=== PATIENT | female | born 1965 | race Caucasian/White ===

== ENCOUNTER 2018-02-11 20:16 | Inpatient (IN) | payer OTHER ==
[~2018-02-11] VITALS: Ht 165.1 cm; Wt 72.6 kg
--- NOTE | 2018-02-11 20:29 | ED PSYCHIATRIC COMPLAINT ---
History of Present Illness General Chief Complaint: Psychiatric Related Complaint Stated Complaint: BIBA OVERDOSE, +SI Source: patient, EMS Exam Limitations: no limitations Vital Signs & Intake/Output Vital Signs & Intake/Output Vital Signs Date Time Temp Pulse Resp B/P B/P Pulse O2 O2 Flow FiO2 Mean Ox Delivery Rate 02/12 1038 98.2 84 20 111/57 99 Room Air 02/12 0842 98.0 78 18 106/78 98 Room Air 02/12 0600 98.2 80 18 118/77 99 Room Air 02/12 0423 98.3 76 18 115/58 99 Room Air 02/12 0349 65 20 101/55 100 Room Air 02/12 0313 98.6 81 18 101/60 99 Room Air 02/12 0145 97.5 62 18 101/56 99 Room Air 02/12 0040 70 18 96/53 100 Room Air 02/12 0029 74 18 83/50 99 Room Air 02/11 2305 97.6 73 18 101/59 100 Room Air 02/11 2218 76 16 115/71 97 Room Air Room Air 02/11 2159 83 16 96 Room Air Room Air 02/11 2047 97.8 90 20 113/68 96 Room Air ED Intake and Output 02/12 0000 02/11 1200 Intake Total Output Total Balance Patient 160 lb Weight Weight Estimated Measurement Method Triage Nurses Notes Reviewed? yes Onset: Gradual Duration: hour(s): Timing: recent history Severity: moderate Associated Symptoms: anxiety, suicidal ideation HPI: 52 yo woman brought in on a police PEER, after suicide attempt. She shares that she received disturbing texts from her boyfriend of 7 years. "He lied to me... I trusted him... He seemed so genuine... I am such a fool." She then took her xanax. "I took four pills... and then 2 more... and then some more... maybe 12 total... I had vodka in orange juice." 911 called after she spoke to a friend. Per the medics, "She said she wanted to go to sleep and not wake up." She denies other drugs. She is otherwise well. (Gayle WALSH,Mata Solis) Allergies Coded Allergies: Penicillins (ANAPHYLAXIS PER PT 02/12/18) Sulfa (Sulfonamide Antibiotics) (ANAPHYLAXIS PER PT 02/12/18) (Buck WALSH,Enrique Arce) Past History Travel History Traveled to [place] past 21 day No Medical History Any Pertinent Medical History? see below for history Psychiatric: anxiety Surgical History Surgical History: none Family History Hx Contributory? No (Gayle WALSH,Mata Solis) Review of Systems Review of Systems Constitutional: Reports: no symptoms. EENTM: Reports: no symptoms. Respiratory: Reports: no symptoms. Cardiovascular: Reports: no symptoms. GI: Reports: no symptoms. Genitourinary: Reports: no symptoms. Musculoskeletal: Reports: no symptoms. Skin: Reports: no symptoms. Neurological/Psychological: Reports: no symptoms. Hematologic/Endocrine: Reports: no symptoms. Immunologic/Allergic: Reports: no symptoms. All Other Systems: Reviewed and Negative (Gayle WALSH,Mata Solis) Physical Exam Physical Exam General Appearance: well developed/nourished, mild distress Head: atraumatic Eyes: Bilateral: normal appearance. Ears, Nose, Throat: normal pharynx, normal ENT inspection, hearing grossly normal Neck: normal inspection, supple Respiratory: normal breath sounds Cardiovascular: regular rate/rhythm Gastrointestinal: soft, non-tender Extremities: normal range of motion Neurological/Psychiatric: agitated, anxious Appearance/Memory/Insight: disheveled, impaired insight Behavoir/Eye Contact/Speech: cooperative Thoughts/Hallucinations: no apparent hallucination Skin: intact, normal color, warm/dry SAD PERSONS SAD PERSONS Response Value Age <19 or >45 years? yes 1 Depression/Hopelessness? yes 2 Excessive Ethanol/Drug Use? yes 1 Rational Thinking Loss? yes 2 Single//? yes 1 Organized/Serious Attempt yes 2 Social Support? has no support 1 Total 10 SAD PERSONS Done? yes (Gayle WALSH,Mata Solis) Progress Differential Diagnosis: DEPRESSION VS OTHER. Plan of Care: Orders Procedure Date/time Status Regular Diet 02/12 B Active Patient Safety Monitor 02/12 1131 Active Restraint- Behavioral (Order) 02/12 1131 Active Restraint- Discontinue 02/12 0850 Active URINE DRUG SCREEN FOR ER ONLY 02/12 0849 Complete Restraint- Behavioral (Order) 02/12 0752 Active Restraint- Behavioral (Order) 02/12 0649 Complete Add-on Test (ER Only) 02/12 0544 Active EKG 02/12 0544 Active ACETOMINOPHEN 09/02 2054 Complete SALICYLATE 02/11 2054 Complete Continuous Observation Monitor 02/11 2033 Active ETHANOL 02/11 2033 Complete COMPREHENSIVE METABOLIC PANEL 02/11 2033 Complete CBC WITHOUT DIFFERENTIAL 02/11 2033 Complete ED CRISIS PSYCH CONSULT 02/11 2033 Active Current Medications Sig/Charly Start time Last Medication Dose Stop Time Status Admin Benztropine Mesylate 1 MG ONCE ONE 02/12 113 UNVr (Cogentin) 02/12 113 Haloperidol 5 MG ONCE ONE 02/12 113 UNVr (Haldol) 02/12 113 Laboratory Tests 02/12/18 0850: Urine Opiates Screen < 100, Methadone Screen < 40, Barbiturate Screen < 60, Ur Phencyclidine Scrn < 6.00, Amphetamines Screen < 100, U Benzodiazepines Scrn > 800 H, Urine Cocaine Screen < 50, Urine Cannabis Screen < 5.00 02/11/182053: Anion Gap 9, Estimated GFR > 60, BUN/Creatinine Ratio 15.0, Glucose 80, Calcium 9.6, Total Bilirubin 0.3, AST 31, ALT 33, Alkaline Phosphatase 102, Total Protein 7.2, Albumin 4.2, Globulin 3.0, Albumin/Globulin Ratio 1.4, CBC w Diff NO MAN DIFF REQ, RBC 4.56, MCV 70.6 L, MCH 22.2 L, MCHC 31.5 L, RDW 18.9 H, MPV 9.7, Gran % 66.4, Lymphocytes % 25.7, Monocytes % 6.3, Eosinophils % 1.1, Basophils % 0.5, Absolute Granulocytes 6.0, Absolute Lymphocytes 2.3, Absolute Monocytes 0.6, Absolute Eosinophils 0.1, Absolute Basophils 0, Salicylates < 1.0 , Acetaminophen < 10.0 L, Serum Alcohol < 10.0 02/11/182032: Methadone Screen Cancelled, Barbiturate Screen Cancelled, Ur Phencyclidine Scrn Cancelled, Amphetamines Screen Cancelled, U Benzodiazepines Scrn Cancelled, Urine Cocaine Screen Cancelled, Urine Cannabis Screen Cancelled Initial ED EKG: normal axis, normal intervals, normal p-waves, normal QRS complex, normal sinus rhythm (Gayle WALSH,Mata Solis) Comments: Patient has been seen and evaluated by the crisis counselor and a psychiatrist. Patient is due to be admitted to [facility]. Patient attempted to walk out twice stating that her previous mistake was that she called somebody and she just wants to go home to "finish the job." Patient is requiring restraints again. (Buck WALSH,Enrique Arce) Departure Departure Disposition: STILL A PATIENT Condition: Stable Clinical Impression Primary Impression: Depression Secondary Impressions: Benzodiazepine overdose Departure Forms: Customer Survey General Discharge Information Comments pt to be signed out to dr. gordon 02/12/18, 7am. (Gayle WALSH,Mata Solis) Psych Admission Note Psychiatric Admission: I have seen and evaluated YOLY KINCAID. I have also reviewed all the pertinent lab results and diagnostic results. YOLY KINCAID will be admitted to our inpatient Psychiatric unit for treatment and care. (Buck WALSH,Enrique Arce)
[2018-02-11 21:04] LABS: ABSOLUTE BASOPHIL COUNT 0 /CUMM (0.0-0.2); ABSOLUTE EOSINOPHIL COUNT 0.1 /CUMM (0.0-0.7); ABSOLUTE LYMPH COUNT 2.3 /CUMM (1.2-3.4); ABSOLUTE MONOCYTE COUNT 0.6 /CUMM (0.10-0.60); BASOPHIL % 0.5 % (0.0-2.0); EOSINOPHIL % 1.1 % (0-5); GRANULOCYTE % 66.4 % (42.2-75.2); HEMATOCRIT 32.2 % (37-47); MEAN CORPUSCULAR HGB 22.2 PG (27.0-31.0); MEAN CORPUSCULAR HGB CONC 31.5 G/DL (33.0-37.0); MEAN CORPUSCULAR VOLUME 70.6 FL (81.0-99.0); MEAN PLATELET VOLUME 9.7 FL (7.4-10.4); PLATELET COUNT 299 /CUMM (130-400); RBC DISTRIBUTION WIDTH 18.9 % (11.5-14.5); RED BLOOD CELL CT 4.56 /CUMM (4.20-5.40)
--- NOTE | 2018-02-12 09:29 | ED PSYCH CRISIS CONSULTATION ---
See Addendum Crisis Consult Basic Assessment Date of Consult: 02/12/18 Responsible Person/Accompanied By: SARAH and on a PEER Insurance Authorization: Insurance #1: Insurance name: LEONARDO COELLO Phone number: Policy number: [id number] Group number: Authorization number: ED Provider: Patient's ED Provider: Gayle WALSH,Mata Solis Primary Care Physician: Patient's PCP: Unknown PCP's Phone Number: Current Psychiatrist: None Chief Complaint: ETOH/Drug Related Complaint Patient's Quote: "Nothing." Present Illness: The patient is a 52 year old, female who presented to the ED on a PEER, after taking an intentional overdose of Xanax. The patient appears to have an altered mental status and was not sure what state she was in, or what facility she was in. She had a disorganized thought process and had loose associations. She was guarded and did not want to answer any questions. She denies that she attempted suicide and states " I didn't try to commit suicide, I just didn't want to be awake." She denies feeling depressed, anxious, or suicidal. She does admit to feeling helpless and hopeless. She states that she does not want to talk about her recent relationship issues and just wants to go home. She did not appear to have insight into the severity of her suicide attempt. She stated that her children would be better off without her and that she does not deserve or need any help. The patients brother, Dr. Devin Louie ([phone]), was present for collateral. He states that the patient has always been "an emotional," person. Devin states that the patient has been for 8 years and that she started a new romantic relationship at that time. Devin states that she has been in the relationship since, however the man is . Devin states that the patient believed that her boyfriend would leave his , however 2 days ago, this man stated he was never going to leave his . Devin states that this is the first time that the patient has ever tried to kill herself, however has made passive suicidal statements in the past. 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 Devin states that the patient has never hospitalized , however he does agree with a hospitalization at this time. SW received a call from the patients friend, Randal Briggs ([phone]), for collateral information. Randal states that he is a police magistrate and that they have been romantically involved for about the last 7 years. Randal states that they have been having arguments for the last couple of days. Randal states that after the argument, she called him and stated that she "took a dozen Xanax and was going to take 20 more with alcohol." Randal states that she told him she took the pills to kill herself and that she wrote goodbye notes to her parents and kids. Randal states that he is unsure of the status of their relationship and states " I just want her to get better." Patient's Address: [address] [place] [address] [address] [place] [address] Other Phone Number: Who Do You Live With? Patient/Self Family/Informants Interviewed: Brother- Devin Louie ([phone]) and Randal Briggs- Friend [phone] Allergies - Coded Allergies: Penicillins (ANAPHYLAXIS PER PT 02/12/18) Sulfa (Sulfonamide Antibiotics) (ANAPHYLAXIS PER PT 02/12/18) Laboratory Results: Laboratory Tests 02/12/18 0850: Urine Opiates Screen < 100, Methadone Screen < 40, Barbiturate Screen < 60, Ur Phencyclidine Scrn < 6.00, Amphetamines Screen < 100, U Benzodiazepines Scrn > 800 H, Urine Cocaine Screen < 50, Urine Cannabis Screen < 5.00 02/11/18 2054: Anion Gap 9, Estimated GFR > 60, BUN/Creatinine Ratio 15.0, Glucose 80, Calcium 9.6, Total Bilirubin 0.3, AST 31, ALT 33, Alkaline Phosphatase 102, Total Protein 7.2, Albumin 4.2, Globulin 3.0, Albumin/Globulin Ratio 1.4, CBC w Diff NO MAN DIFF REQ, RBC 4.56, MCV 70.6 L, MCH 22.2 L, MCHC 31.5 L, RDW 18.9 H, MPV 9.7, Gran % 66.4, Lymphocytes % 25.7, Monocytes % 6.3, Eosinophils % 1.1, Basophils % 0.5, Absolute Granulocytes 6.0, Absolute Lymphocytes 2.3, Absolute Monocytes 0.6, Absolute Eosinophils 0.1, Absolute Basophils 0, Salicylates < 1.0 , Acetaminophen < 10.0 L, Serum Alcohol < 10.0 02/11/182032: Methadone Screen Cancelled, Barbiturate Screen Cancelled, Ur Phencyclidine Scrn Cancelled, Amphetamines Screen Cancelled, U Benzodiazepines Scrn Cancelled, Urine Cocaine Screen Cancelled, Urine Cannabis Screen Cancelled Past History Past Medical History Psychiatric: anxiety Past Surgical History Surgical History: 1 Psychosocial History Strengths/Capabilities: The patient appears to have a supportive family. 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 Physical Limitations (Interventions): None noted Psychiatric Treatment History Psych Treatment Psychiatric Treatment No Inpatient Treatment No Outpatient Treatment Yes Location of Treatment Unclear- she says she has taken meds, however did not disclose prescriber Reason for Treatment Depression Dates of Treatment Unclear Response to Treatment The patient reports that she is very unhappy with the psychiatry profession. Diagnosis by History: Unknown Substance Use/Abuse History Drug Use/Abuse Substances Used/Abused No First Use N/A Last Used N/A How much used/taken N/A How often N/A For how long N/A Route of use N/A Substance Abuse Treatment Substance Abuse Treatment Past Substance Abuse TX No Inpatient Treatment No Outpatient Treatment No Location of Treatment N/A Reason for Treatment N/A Dates of Treatment N/A Response to Treatment N/A Comments: N/A Current Mental Status Mental Status Orientation: Confused Affect: Anxious, Depressed, Sad Speech: Slurred (At times) Neuro-vegetative: Appears to be desheveled Appearance Appearance- Dress/Hygiene: The patient appears to be disheveled and unkempt. Behaviors Thought Process: Disorganized, Flight of Ideas, Loose Association Thought Content: WNL Memory: Impaired Insight: Poor SI/HI Risk Assessment Past Suicidal Ideation/Attempts No Current Suicidal Ideation/Att Yes Past Homicidal Ideation/Att: No Current Homicidal Ideation/Attempts No Degree of Intent: The patient presented on a PEER after taking an intentional overdose of Xanax, in a suicide attepmt. Per her friend she called him and told him, that she took pills and was going to take more. Per her friend, she wrote goodbye notes to her children and parents. Danger To: Self Gravely Disabled: Poor Impulse Control, Poor Judgment Risk Factors: high anxiety/distress Lethality Ratin PTSD Checklist PTSD Done? pt unable to participate ED Management Sitter: Yes Restraints: No DSM5/PS Stressors/Medical Prob Diagnosis' (DSM 5, Stressors, Medical): F32.9 Unspecified Depressive Disorder Medical: Unremarkable Stressors: relationship issues. Current GAF: 25 Comments: N/A Departure Disposition Psych Medical Clearance Date: 02/12/18 Medically Cleared at: 1000 Time Started: 1030 Time Ended: 1130 Psychiatrist Consulted: Dr. Gilbert Date Disposition Established: 02/12/18 Time Disposition Established: 1129 Plan for Disposition - Modality: Admit to CPS Contact: N/A Telephone: N/A Rationale for Disposition: The patient presented to the ED on a PEER, after taking an intentional overdose of Xanax in a suicide attempt. The case was discussed with Dr. Gilbert and the patient will be observed in the ED, until her mental status clears somewhat and then will be admitted to CPS. Type of IP Admission: PEC Additional Instructions: N/A Referrals Unknown (PCP/Family)
--- NOTE | 2018-02-12 14:56 | IP CRISIS DIAG ASSESS PSYCH ---
Diagnostic Assessment Basic Assessment Insurance Authorization: Insurance #1: Insurance name: LEONARDO COELLO Phone number: Policy number: [id number] Group number: Authorization number: [employer] [facility] Reviewer: Myriam Courtney Authorized: 3 days, 02/12-02/14 Review due on:02/14/2018 Authorization #: [id number] Someone from the Case Management department will call to complete concurrent review. Primary Care Physician: Patient's PCP: Unknown PCP's Phone Number: Patient's Quote: "Nothing." Present Illness: The patient is a 52 year old, female who presented to the ED on a PEER, after taking an intentional overdose of Xanax. The patient appears to have an altered mental status and was not sure what state she was in, or what facility she was in. She had a disorganized thought process and had loose associations. She was guarded and did not want to answer any questions. She denies that she attempted suicide and states " I didn't try to commit suicide, I just didn't want to be awake." She denies feeling depressed, anxious, or suicidal. She does admit to feeling helpless and hopeless. She states that she does not want to talk about her recent relationship issues and just wants to go home. She did not appear to have insight into the severity of her suicide attempt. She stated that her children would be better off without her and that she does not deserve or need any help. The patients brother, Dr. Devin Louie ([phone]), was present for collateral. He states that the patient has always been "an emotional," person. Devin states that the patient has been for 8 years and that she started a new romantic relationship at that time. Devin states that she has been in the relationship since, however the man is . Devin states that the patient believed that her boyfriend would leave his , however 2 days ago, this man stated he was never going to leave his . Devin states that this is the first time that the patient has ever tried to kill herself, however has made passive suicidal statements in the past. 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 Devin states that the patient has never hospitalized , however he does agree with a hospitalization at this time. SW received a call from the patients friend, Randal Chester ([phone]), for collateral information. Randal states that he is a police department secretary and that they have been romantically involved for about the last 7 years. Randal states that they have been having arguments for the last couple of days. Randal states that after the argument, she called him and stated that she "took a dozen Xanax and was going to take 20 more with alcohol." Randal states that she told him she took the pills to kill herself and that she wrote goodbye notes to her parents and kids. Randal states that he is unsure of the status of their relationship and states " I just want her to get better." Patient's Address: [address] [place] [address] [address] [place] [address] Other Phone Number: Who Do You Live With? Patient/Self Feel Safe Where You Live? Yes Marital Status: Do You Have Children? Yes Ages? 2 adult children Primary Language? [place] Islander Family/Informants Interviewed: Brother- Devin Louie ([phone]) and Randal Briggs- Friend [phone] Allergies - Coded Allergies: Penicillins (ANAPHYLAXIS PER PT 02/12/18) Sulfa (Sulfonamide Antibiotics) (ANAPHYLAXIS PER PT 02/12/18) Current Medications - No Known Home Medications Consequences of Psych Med Use: N/A Comment: N/A Lab Results: Laboratory Tests 02/12/18 0850: Urine Opiates Screen < 100, Methadone Screen < 40, Barbiturate Screen < 60, Ur Phencyclidine Scrn < 6.00, Amphetamines Screen < 100, U Benzodiazepines Scrn > 800 H, Urine Cocaine Screen < 50, Urine Cannabis Screen < 5.00 02/11/184: Anion Gap 9, Estimated GFR > 60, BUN/Creatinine Ratio 15.0, Glucose 80, Calcium 9.6, Total Bilirubin 0.3, AST 31, ALT 33, Alkaline Phosphatase 102, Total Protein 7.2, Albumin 4.2, Globulin 3.0, Albumin/Globulin Ratio 1.4, CBC w Diff NO MAN DIFF REQ, RBC 4.56, MCV 70.6 L, MCH 22.2 L, MCHC 31.5 L, RDW 18.9 H, MPV 9.7, Gran % 66.4, Lymphocytes % 25.7, Monocytes % 6.3, Eosinophils % 1.1, Basophils % 0.5, Absolute Granulocytes 6.0, Absolute Lymphocytes 2.3, Absolute Monocytes 0.6, Absolute Eosinophils 0.1, Absolute Basophils 0, Salicylates < 1.0 , Acetaminophen < 10.0 L, Serum Alcohol < 10.0 02/11/182032: Methadone Screen Cancelled, Barbiturate Screen Cancelled, Ur Phencyclidine Scrn Cancelled, Amphetamines Screen Cancelled, U Benzodiazepines Scrn Cancelled, Urine Cocaine Screen Cancelled, Urine Cannabis Screen Cancelled Toxicology Screen Completed? Yes Results: positive (Benzodiazepines) Symptoms of Use: N/A Past History Abuse/Trauma History Trauma History/Current Trauma: Unknown, unable to assess Legal History Current Legal Status: none Pending Court Dates: Unknown Superintendent [place] Unknown Psychosocial History Strengths/Capabilities: The patient appears to have a supportive family. 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 Physical Limitations (Interventions): None noted Psychiatric Treatment History Psych Treatment Psychiatric Treatment No Inpatient Treatment No Outpatient Treatment Yes Location of Treatment Unclear- she says she has taken meds, however did not disclose prescriber Reason for Treatment Depression Dates of Treatment Unclear Response to Treatment The patient reports that she is very unhappy with the psychiatry profession. Diagnosis by History: Unknown Risk Factors: high anxiety/distress Substance Use/Abuse History Drug Use/Abuse minimum 12mo Hx Substances Used/Abused No First Use N/A Last Used N/A How much used/taken N/A How often N/A For how long N/A Route of use N/A Substance Abuse Treatment Substance Abuse Treatment Past Substance Abuse TX No Inpatient Treatment No Outpatient Treatment No Location of Treatment N/A Reason for Treatment N/A Dates of Treatment N/A Response to Treatment N/A Comments: N/A Sexual History Sexual Concerns: None noted Education History Highest Level of Education: [employer] Doctorate Preferred Learning Style: Unknown Current Mental Status Mental Status Orientation: Confused Affect: Anxious, Depressed, Sad Speech: Slurred (At times) Neuro-vegetative: Appears to be desheveled Appearance Appearance- Dress/Hygiene: The patient appears to be disheveled and unkempt. Behaviors Thought Process: Disorganized, Flight of Ideas, Loose Association Thought Content: WNL Memory: Impaired Insight: Poor SI/HI Risk Assessment - Minimum 6mo History- Past Suicidal Ideation/Attempts No Current Suicidal Ideation/Att Yes Past Homicidal Ideation/Att: No Current Homicidal Ideation/Attempts No Degree of Intent: The patient presented on a PEER after taking an intentional overdose of Xanax, in a suicide attepmt. Per her friend she called him and told him, that she took pills and was going to take more. Per her friend, she wrote goodbye notes to her children and parents. Danger To: Self Gravely Disabled: Poor Impulse Control, Poor Judgment Risk Factors: high anxiety/distress Lethality Ratin Needs/Init TX Plan/Goals: Admit to the inpatient unit for safety and symptom stability. Work with the provider on medication evaluation. Work with the treatmet team on transiton back to care in the community. Attend group, family and individual sessions. AUDIT-C Questionnaire: AUDIT-C Questionnaire: Response Value ETOH use in the past year Never 0 # drinks typical/day Doesn't Drink 0 6 or > drinks per occasion Never 0 Total 0 DSM5/PS Stressors/Medical Prob Diagnosis' (DSM 5, Stressors, Medical): F32.9 Unspecified Depressive Disorder Medical: Unremarkable Stressors: relationship issues. Current GAF: 25 Comments: N/A
--- NOTE | 2018-02-12 19:06 | ED PSYCHIATRIST/APRN CONSULT ---
Psychiatrist/ANVIL SEATING PRESS OPERATOR ED Consult Assessment and Plan: Case seen and discussed with drill sergeant. Jennifer Cordova is a 52 y/o WF. s/ intentional OD of 12-18 pills 1 mg Xanax. Intent was to kill self. Per collateral report wrote goodbye notes to parents and adult chidlren. Also sent a text to BF. Precipitating event was break up of relationship with BF. Pt presents as anxious, disheveled. Disinhibited with limited insight into seriousness of event. Claims she just wanted to " go to sleep" crying histerically. Disagrees with psy admit. pt came yesterday evening to ED and during the nigth had to be restrained for increased agitation. BP was low required 1000 cc. In the Am reamined highly agitated and attempted to elope. When this web content writer assesed seemed disinhibited. "You have to save children" not me " " I'm going to lose my job and then I'll kill myself" Reccomended 5 mg Haldol IM and 1 mg Cogentin.IM the afternoon progressed she seemed to calm down and remained in behavioral control Pt Will be admitted under PEC for risk to self.
[2018-02-12 20:50] VITALS: BP 133/83
--- NOTE | 2018-02-12 23:31 | History & Physical ---
General Information and HPI MD Statement: I have seen and personally examined YOLY KINCAID and documented this H&P. The patient is a 52 year old F who went into inpatient psychiatric unit for depression. Patient was seen around 10 PM tonight. Patient states that she had a Xanax given by her primary care doctor, for her anxiety disorder. She says she took the medication to go to sleep. And denied to me that she did not have any thoughts of killing herself by ingesting the medication. Patient is not cooperative or willing to provide much details at this point. I reviewed the psychiatric consultation note. As per the note patient probably ingested a 12-18 pulse of 1 mg of Xanax. Is also mentioned that patient wrote goodbye notes to family members. She arrived in the ER yesterday night was agitated, was needed restraints. She was trying to elope this morning as per the note. She also had a low blood pressure for which she was given IV fluids in the emergency room. Patient takes iron pills once daily at home. Denied taking any other medications except Xanax. History of Present Illness: The patient is a 52 year old F who went into inpatient psychiatric unit for depression. Patient was seen around 10 PM tonight. Patient states that she had a Xanax given by her primary care doctor, for her anxiety disorder. She says she took the medication to go to sleep. And denied to me that she did not have any thoughts of killing herself by ingesting the medication. Patient is not cooperative or willing to provide much details at this point. I reviewed the psychiatric consultation note. As per the note patient probably ingested a 12-18 pulse of 1 mg of Xanax. Is also mentioned that patient wrote goodbye notes to family members. She arrived in the ER yesterday night was agitated, was needed restraints. She was trying to elope this morning as per the note. She also had a low blood pressure for which she was given IV fluids in the emergency room. Patient takes iron pills once daily at home. Denied taking any other medications except Xanax. 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 Home Review of Systems Review of Systems Constitutional: Denies: no symptoms. EENTM: Denies: no symptoms. Cardiovascular: Denies: no symptoms. Respiratory: Denies: no symptoms. GI: Denies: no symptoms. Genitourinary: Denies: no symptoms. Skin: Denies: no symptoms. Exam & Diagnostic Data Last 24 Hrs of Vital Signs/I&O Vital Signs Date Time Temp Pulse Resp B/P B/P Pulse O2 O2 Flow FiO2 Mean Ox Delivery Rate 02/12 2050 98.4 84 133/83 02/12 1900 97.7 73 18 108/80 95 Room Air 02/12 1501 98.6 80 20 110/65 99 Room Air 02/12 1038 98.2 84 20 111/57 99 Room Air 02/12 0842 98.0 78 18 106/78 98 Room Air 02/12 0600 98.2 80 18 118/77 99 Room Air 02/12 0423 98.3 76 18 115/58 99 Room Air 02/12 0349 65 20 101/55 100 Room Air 02/12 0313 98.6 81 18 101/60 99 Room Air 02/12 0145 97.5 62 18 101/56 99 Room Air 02/12 0040 70 18 96/53 100 Room Air 02/12 0029 74 18 83/50 99 Room Air Intake & Output 02/12 1600 02/12 0800 02/12 0000 Intake Total Output Total Balance Patient 160 lb Weight Weight Estimated Measurement Method Physical Exam General Appearance Alert, Oriented X3, uncooperative for exam Skin No Rashes, No Breakdown HEENT PERRLA, EOMI Cardiovascular Regular Rate, No Murmurs Lungs Clear to Auscultation Abdomen obese, non tender Extremities No Edema, Normal Pulses Assessment/Plan Assessment: A/p; #Suicidal ideation And depression: Care as for the Psychiatric team. #No known medical issues. medicall stable. Dr.Ravinder Komal MD. Hospitalist. Pager: [phone], cell: [phone]. As Ranked By This Provider Problem List: 1. Depression 2. Benzodiazepine overdose Miscellaneous Miscellaneous Documentation Attending Case Discussed With: Cookie Gilbert MD Primary Care Physician: Unknown Patient sees these Specialists none Level of Patient Care: YODIT Corrales
[2018-02-13 07:53] VITALS: BP 157/90
--- NOTE | 2018-02-13 13:55 | CPS PROVIDER INIT ASMT PSYCH ---
Psychiatric Admission [employer]is [employer] Instructor's Note Reviewed: Yes Patient Seen and Examined: Yes Identifying Information: The patient is a 52 year old, female who presented to the ED on a PEER, Chief Complaint: The patient reports that she took the Xanax in order to fall asleep and not to suicide Reaction to Hospitalization: Patient was admitted on a physician emergency certificate History of Present Illness Onset of Illness: The patient's illness started with depression when she had her 21- year-old twins Circumstances Leading to Admission: The patient is a 52 year old, female who presented to the ED on a PEER, after taking an intentional overdose of Xanax. The patient appears to have an altered mental status and was not sure what state she was in, or what facility she was in. She had a disorganized thought process and had loose associations. She was guarded and did not want to answer any questions. She denies that she attempted suicide and states " I didn't try to commit suicide, I just didn't want to be awake." She denies feeling depressed, anxious, or suicidal. She does admit to feeling helpless and hopeless. She states that she does not want to talk about her recent relationship issues and just wants to go home. She did not appear to have insight into the severity of her suicide attempt. She stated that her children would be better off without her and that she does not deserve or need any help. The patients brother, Dr. Devin Louie ([phone]), was present for collateral. He states that the patient has always been "an emotional," person. Devin states that the patient has been for 8 years and that she started a new romantic relationship at that time. Devin states that she has been in the relationship since, however the man is . Devin states that the patient believed that her boyfriend would leave his , however 2 days ago, this man stated he was never going to leave his . Dvein states that this is the first time that the patient has ever tried to kill herself, however has made passive suicidal statements in the past. 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 Devin states that the patient has never hospitalized , however he does agree with a hospitalization at this time. DORON received a call from the patients friend, Randal Briggs ([phone]), for collateral information. Ranadl states that he is a plain clothes police officer and that they have been romantically involved for about the last 7 years. Randal states that they have been having arguments for the last couple of days. Randal states that after the argument, she called him and stated that she "took a dozen Xanax and was going to take 20 more with alcohol." Randal states that she told him she took the pills to kill herself and that she wrote goodbye notes to her parents and kids. Randal states that he is unsure of the status of their relationship and states " I just want her to get better." Problem(s) Justifying Need for Admission: Overdose on Xanax Past Psychiatric History Past Diagnosis(es)- if any: depression Past Precipitating Factors- if any: Patient reported that she is in part stressed out because of her daughter's own struggles with depression and hospitalizations - Include inpatient and outpatient treatment Treatment History: Patient has not had treatment in 21 years. She reported that she was getting a limited amount of Xanax from her [facility] History of Suicide Attempts or Gestures She denied previous history of suicide attempts. Although she denied that this was a suicide attempt there was an allegation that she wrote a note suggesting that she was feeling better off . Substance Abuse History: Denied alcohol or substance use Allergies: Coded Allergies: Penicillins (ANAPHYLAXIS PER PT 02/12/18) Sulfa (Sulfonamide Antibiotics) (ANAPHYLAXIS PER PT 02/12/18) Home Med List: As needed Xanax 0.5 mg she was receiving only 30 pills per month from her [facility] - Include any medical condition(s) that may - impact the patient's recovery/remission Past History Medical History Neurological: NONE EENT: NONE Cardiovascular: NONE Respiratory: NONE Gastrointestinal: NONE Hepatic: NONE Renal: NONE Musculoskeletal: NONE Psychiatric: anxiety, POST DEPRESSION Endocrine: NONE Blood Disorders: NONE Cancer(s): NONE 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 She reported that it was finally found to be hormonal in nature. Substance Use: Patient denied family history of alcoholism or substance use Suicides: She denied completed suicides in the family Social History Living Situation: She has stable housing with her 21-year-old twins Significant Relationships (family/friends): Her children and her brother Education: She has a low degree Vocation/Occupation: Works in [employer] Legal: Denied legal entanglements Healthly Behaviors Screening Tobacco Screening Tobacco Use from ED Docu: Never used - If tobacco counseling indicated - the following topics are required. - #1 Recognizing dangerous situations. - #2 Coping Skills. - #3 Basic information about quitting. Status of Tobacco Cessation Counseling: Not Applicable Cessation Med Status Not Applicable Alcohol Screening - ETOH screen POS if BAL >=80 or Audit-C>= M4/F3 Audit-C Score from Diag Assess: 0 Blood Alcohol Level: Laboratory Tests 02/11 2054 Toxicology Serum Alcohol (<10 MG/DL) < 10.0 Alcohol Use Screening Results: Neg per Audit C &/or BAL - If ETOH counseling indicated - the following topics are required. - #1 Express concern about the patient's - drinking at unhealthy levels, include informing - of national norms for moderate drinking: - men <= 14 drinks/week, max 4 drinks/occasion - women <= 7 drinks/week, max 3 drinks/occasion - #2 Providing feedback, including linking alcohol to - negative physical effects (liver injury, hypertension) - negative emotional effects (relationship problems and - depression) - negative occupational consequences (reduced work - performance) - #3 Advising the patient to abstain from alcohol or - to drink below national norms for moderate drinking - (as listed above). Status of ETOH Use Counseling: N/A B/C NO ETOH Use Metabolic Screening - Screen if on a Neuroleptic Medication - Metabolic screening should include: - Blood Pressure, BMI, Glucose or Hgb A1c, & a - Lipid profile from within the past 365 days. Metabolic Screening Not Applicable, patient not on a neuroleptic. Exam and Plan Mental Status Examination Ambulation Status: Steady gait Appearance: Unremarkable appearance Attitude towards examiner: Calm and cooperative Psychomotor activity: Normal psychomotor activity Behavior: No abnormal behaviors Quality of speech: Normal speech, not pressured Affect: Constricted affect Mood: She believes she is anxious and not depressed She however acknowledges that she has had past history of depression 21 years ago Suicidal Ideation: Denied thoughts of suicide Homicidal Ideation: Denied thoughts of violence or homicide Hallucinations: Denied hallucinations Paranoid/Delusional Material: Denied feeling paranoid, there were no delusions during the interview Difficulties with thought organization: She was coherent, no thought disorder Insight: She has partial insight Judgment: Questionable judgment Orientation: She was alert and oriented to time, place, and person. Cognition: She did not seem to have difficulties with information processing. Memory Function: There were no difficulties with her short-term memory Estimate of intellectual functioning: Average Assets/Strengths Patient Identified Assets/Strengths: The patient is intelligent and well educated, she has a supportive family Impression/Plan Impression and Plan: 52-year-old white female who was admitted because of concerns about her Xanax to overdose being intentional. She claims that it was not intentional. She reported that she just wanted to sleep. She reported that she has been suffering with chronic insomnia for months if not years. Although she struggles with generalized anxiety and chronic insomnia she did not want any medications that are to be taken on a daily basis. She reported that she was using only low-dose of Xanax as needed prescribed by her nursing informatics analyst and sales marketing. [place] prescription monitoring program website confirmed that - Include all active medical diagnosis that require tx DSM 5 Diagnosis(es): Unspecified depressive disorder Generalized anxiety disorder - Initial Tx Plan for Active Psych & Medical Conditions Treatment Plan: Inpatient psychiatric care No regularly scheduled psychotropics per her request She was informed that she has low-dose gabapentin for anxiety and 50 g of trazodone as needed for sleep she should she decide to take advantage of that - Factors that would help patient function - in a less restrictive setting. Factors: Patient will be discharged most likely tomorrow once there is a safe aftercare plan
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
--- NOTE | 2018-02-13 17:24 | SOCIAL WORKER PROG NOTE PSYCH ---
Social Work Progress Note Progress Note Jennifer reports the last couple days here have been slow. She talked about how she has had difficulty sleeping, primarily for the past 10 years. She has tried various prescriptions and OTC medication to help. She generally gets about 2 hours of sleep and wakes up and then attempts to go back to sleep. Her OBGYN has been prescribing her Xanax. She said she does not abuse it and doesn't take something every day. She reports she gets a 30 day supply that lasts her 2-3 months. She took an overdose of the Xanax the other day, due to needing to get sleep and not wanting to deal with reality. She reports it was not a suicide attempt and that she took maybe 4-6 pills but couldn't say for sure. She got very emotional/ tearful sharing that she was having an emotional day because what was going on with her significant other. She shared that she has been seeing her significant other for the past 7 years. She has known him her whole life. He is . She went on to share that the other day he told her that he has been lying to her and that he has had no intention to leave his and that they have been in a relationship as a couple. Apparently he had been telling her he is going to leave his and that they are not really in a romantic relationship at this point, but basically roommates and parenting their children. The found out about the affair, which then apparently prompted him to call Jennifer and tell her all of this. This is not the first time the found out that they were together. Jennifer is feeling ashamed and "stupid" for having believed him. She reports that most of her decisions in the last 7 years have been based around him and their relationship and what he has been telling her. She is feeling mistrustful of him at this point, but hasn't decided whether or not this relationship is over. He is telling her that it is now over with his . She reports that she has a therapist she sees every other week or so in [place]. Their name is Natalia Booker. She is in no other treatment. She is very eager to leave the hospital and get back to work. 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 She is nervous about her absence and says it is uncharacteristic of her to be out of work. She is advocating to leave the hospital tomorrow. She shared that she is very close with her family, but she doesn't want them involved in a family meeting. She has 2 adult children. One lives in [place] with his Father and the other is away at college. I told her that I would need to discuss things with the team to plan discharge.
[2018-02-13 19:38] VITALS: BP 143/75
[2018-02-14 07:40] VITALS: BP 109/63
[2018-02-14] MEDS ORDERED: TRAZODONE HCL50 M1 PO (10:20)
--- NOTE | 2018-02-14 10:22 | Patient Discharge Instructions ---
Psych Discharge Inst General Discharge Information Reason for Admission: took 4-6 pills of Xanax 0.5 mg Psy Discharge Primary Diag+ Unspecified Depressive DO Psy Discharge Secondary Diag+ Generalized Anxiety Summary Tests/Major Procedures Lab Hct 32.2 % L 02/11/182053 Hgb 10.1 G/DL L 02/11/182053 Studies Pending at DC: None Patient Instructions Contact Information Your Psychiatrist on [facility] was Isabela WALSH,Michael * If you are experiencing an emergency related to this hospitalization, please call [phone] to contact the treating psychiatrist or the psychiatrist-on- call. * To Request a copy of your medical records, please contact the Medical Records Department at [phone]. * To request results of studies pending at the time of discharge, please call [phone]. * Continue your Medications until directed to stop by your Healthcare provider. General Medication Information Please continue to take your new medications and your continued home medications , unless otherwise indicated on your discharge medication list, or unless directed by your MD or REGISTERED NURSE POST PARTUM to stop them. Special Instructions Diet Regular Activity Normal - Tobacco Use Treatment Offered Post DC Medications Offered: Not Applicable Post DC Tobacco Treatment Plan: Not Applicable - EtOH/Drug Use D/O Treatment Offered Post DC Medications Offered: NA-No EtOH/Drug Use D/O Post DC EtOH/SubAbuse [place] Plan: NA-No EtOH/Drug Use D/O Metabolic Screening Not Applicable, patient not on a neuroleptic. Advance Directives Does the Patient have Medical Advance Directives No/Refused further info Does Pt have Psychiatric Advance Directives? No/Refused further info Does Patient have a Designated Surrogate Decision Maker: No Information About Psychiatric Advance Directives Provided? Refused Discharge Plan Post Hospital Treatment Plan: Therapist + Psychiatrist
--- NOTE | 2018-02-14 10:24 | CP SOUTH PROGRESS NOTE PSYCH ---
Psych (Inpt) Progress Note Progress Note Vital Signs Date Time Temp Pulse Resp B/P B/P Pulse O2 O2 Flow FiO2 02/14 0740 98.1 84 109/63 02/13 1938 99.0 95 143/75 Mental Status Examination Steady gait, Unremarkable appearance, Calm and cooperative, Normal psychomotor activity, No abnormal behaviors, Normal speech, not pressured, Constricted affect She believes she is anxious and not depressed, Denied thoughts of suicide, Denied thoughts of violence or homicide, Denied hallucinations, Denied feeling paranoid, there were no delusions during the interview She was coherent, no thought disorder She has partial insight She was alert and oriented to time, place, and person. She did not seem to have difficulties with information processing. There were no difficulties with her short-term memory Assessment: 52-year-old white female who was admitted because she took 4-6 tablets of Xanax (0.5 mg). There was suspicion about this being a suicide gesture. She claims that this was not a suicide attempt but in fact she just wanted to sleep. She does struggle with chronic insomnia. She has been on low-dose Xanax by her fancy sewer. reported that she has been suffering with chronic insomnia for months if not years. Although she struggles with generalized anxiety and chronic insomnia she did not want any medications that are to be taken on a daily basis. She reported that she was using only low-dose of Xanax as needed prescribed by her fancy sewer and lithography contact worker. The patient has been denying thoughts of suicide since arrival to the emergency room DSM 5 Diagnosis(es): Unspecified depressive disorder Generalized anxiety disorder Treatment Plan: Discharge home with plan to continue with her individual therapist and to follow -up with a psychiatrist. Patient was discharged only on PRN doses of trazodone. Impression and Plan: 52-year-old white female who was admitted because of concerns about her Xanax to overdose being intentional. She claims that it was not intentional. She reported that she just wanted to sleep. She reported that she has been suffering with chronic insomnia for months if not years. Although she struggles with generalized anxiety and chronic insomnia she did not want any medications that are to be taken on a daily basis. She reported that she was using only low-dose of Xanax as needed prescribed by her fancy sewer and lithography contact worker. [place] prescription monitoring program website confirmed that - Include all active medical diagnosis that require tx DSM 5 Diagnosis(es): Unspecified depressive disorder Generalized anxiety disorder - Initial Tx Plan for Active Psych & Medical Conditions Treatment Plan: Inpatient psychiatric care No regularly scheduled psychotropics per her request She was informed that she has low-dose gabapentin for anxiety and 50 g of trazodone as needed for sleep she should she decide to take advantage of that
--- NOTE | 2018-02-14 10:29 | DISCHARGE SUMMARY REPORT-PSYCH ---
Visit Information Visit Dates/Diagnosis' Admission Date: 02/12/18 Discharge Date: 02/14/18 Reason for Admission: took 4-6 pills of Xanax 0.5 mg Psy Discharge Primary Diag: Unspecified Depressive DO Psy Discharge Secondary Diag: Generalized Anxiety Hospital Course Course Complications: Patient did not have any complications while she was on the inpatient psychiatric unit. Consultations: Patient had a history and physical examination by the shirring machine operator automatic. Please refer to the patient's electronic health record for the details of the H&P. Allergies: Coded Allergies: Penicillins (ANAPHYLAXIS PER PT 02/12/18) Sulfa (Sulfonamide Antibiotics) (ANAPHYLAXIS PER PT 02/12/18) Hospital Course/TX Response: 02/13/2018: Impression and Plan: 52-year-old white female who was admitted because of concerns about her Xanax to overdose being intentional. She claims that it was not intentional. She reported that she just wanted to sleep. She reported that she has been suffering with chronic insomnia for months if not years. Although she struggles with generalized anxiety and chronic insomnia she did not want any medications that are to be taken on a daily basis. She reported that she was using only low-dose of Xanax as needed prescribed by her nickel plater and vegetable harvest worker. [place] prescription monitoring program website confirmed that Diagnoses: Unspecified Depressive Disorder Generalized Anxiety Disorder Treatment Plan: Inpatient psychiatric care No regularly scheduled psychotropics per her request She was informed that she has low-dose gabapentin for anxiety and 50 g of trazodone as needed for sleep she should she decide to take advantage of that 02/14/2018: Mental Status Examination Steady gait, Unremarkable appearance, Calm and cooperative, Normal psychomotor activity, No abnormal behaviors, Normal speech, not pressured, Constricted affect She believes she is anxious and not depressed, Denied thoughts of suicide, Denied thoughts of violence or homicide, Denied hallucinations, Denied feeling paranoid, there were no delusions during the interview She was coherent, no thought disorder She has partial insight She was alert and oriented to time, place, and person. She did not seem to have difficulties with information processing. There were no difficulties with her short-term memory Assessment: 52-year-old white female who was admitted because she took 4-6 tablets of Xanax (0.5 mg). There was suspicion about this being a suicide gesture. She claims that this was not a suicide attempt but in fact she just wanted to sleep. She does struggle with chronic insomnia. She has been on low-dose Xanax by her nickel plater. reported that she has been suffering with chronic insomnia for months if not years. Although she struggles with generalized anxiety and chronic insomnia she did not want any medications that are to be taken on a daily basis. She reported that she was using only low-dose of Xanax as needed prescribed by her nickel plater and vegetable harvest worker. The patient has been denying thoughts of suicide since arrival to the emergency room DSM 5 Diagnosis(es): Unspecified depressive disorder Generalized anxiety disorder Treatment Plan: Discharge home with plan to continue with her individual therapist and to follow -up with a psychiatrist. Patient was discharged only on PRN doses of trazodone. Discharge HBIPS - Tobacco Use Treatment Offered Post DC Medications Offered: Not Applicable Post DC Tobacco Treatment Plan: Not Applicable - EtOH/Drug Use D/O Treatment Offered Post DC Medications Offered: NA-No EtOH/Drug Use D/O Post DC EtOH/SubAbuse TX Plan: NA-No EtOH/Drug Use D/O Metabolic Screening - Screen if on a Neuroleptic Medication - Metabolic screening should include: - Blood Pressure, BMI, Glucose or Hgb A1c, & a - Lipid profile from within the past 365 days. Metabolic Screening Not Applicable, patient not on a neuroleptic. Discharge Instructions General Discharge Information Multiple Neuroleptics: Not Applicable Discharge Diet Regular Discharge Activity Normal DC Disposition: Home Referrals Ordered Referrals OUTPATIENT PSYCHIATRY 02/20/18 248/[address] [place] [address] Outpatient Psychiatric Services Intake appt. 02/20/18 [address] [place] [address] OUTPATIENT PSYCHIATRY 03/07/18 248/[address] [place] [address] Outpatient Psychiatric Services appt. with Dr. Ruby 03/07/18 10am [address] [place] [address] Provider Referral For Groups: [Natalia Valdez LCSW] Patient will follow up with her therapist for an appt. Natalia Valdez LCSW [address] [place] [id number] Prescriptions Start taking the following new medications: Trazodone HCl (Trazodone HCl) 50 MG TABLET 50 Milligram ORAL AT BEDTIME as needed for INSOMNIA Qty = 15 No Refills Comments: Last Taken:NOT USED IN THE HOSPITAL Time: Studies Pending at Discharge None Copies To: CHRISTINA WALSH,LORA
--- NOTE | 2018-02-14 17:58 | SOCIAL WORKER PROG NOTE PSYCH ---
Social Work Progress Note Progress Note Met with Jennifer this morning. She reports not sleeping great and not knowing that she had Trazadone available to sleep. She is eager to discharge today. I told her that the team discussed it and we are in agreement for her to go today. Discussed aftercare. Set up an appt. at [facility] for 02/20 at 2pm and an appt. with Dr. Ruby on 03/07 at 10am. Jennifer was also given a list of providers in the [facility] area as they are closer to work and possibly more convenient. She [place] [facility] [place] but stated she can go to an appt. on her lunch our or right after work. She is very concerned about her finances and what it will cost her to follow up on care. She reports that she has a 10,000 dollar deductible and that she is still paying off a medical bill from last year. I told her that the hospital will work with her.
--- NOTE | 2018-02-15 08:41 | SOCIAL WORKER PROG NOTE PSYCH ---
Social Work Progress Note Faxed Referral(s) Referred To: [facility] Transition of Care Documents sent: Health Summary Faxed to: [facility] Fax #: [phone] Faxed by: Yaquelin Milan Date faxed: 02/14/18 Time Faxed: [phone]
== END 2018-02-14 14:23 | DRG 881 ==
LOC: ERH 20:16 → CP SOUTH 02-12 11:33 → ERHI 02-12 11:33 → ENTRNSPT 02-12 20:08 → CMPTRNSPT 02-12 20:14 → CP SOUTH 02-12 20:21
PROVIDERS: Pediatrics
DX: F32.9 Major depressive disorder, single episode, unspecified (principal); F41.9 Anxiety disorder, unspecified
CPT/HCPCS: 80307; 93005; 93010; G0463; G0480; J0515; J1630

== ENCOUNTER 2018-02-20 16:04 | Inpatient (IN) | payer OTHER ==
[~2018-02-20] VITALS: Ht 162.6 cm; Wt 74.8 kg
[~2018-02-20 16:04] MED LIST: TRAZODONE HCL50 M1 PO
--- NOTE | 2018-02-20 17:19 | ED GENERAL ADULT ---
History of Present Illness General Chief Complaint: Psychiatric Related Complaint Stated Complaint: BIBA FOR +SI Source: patient, family, old records Exam Limitations: no limitations Vital Signs & Intake/Output Vital Signs & Intake/Output Vital Signs Date Time Temp Pulse Resp B/P B/P Pulse O2 O2 Flow FiO2 Mean Ox Delivery Rate 02/20 2157 97.2 83 128/81 02/20 2134 98.4 79 18 130/84 97 Room Air Room Air 02/20 1947 98.4 80 20 137/81 100 Room Air 02/20 1623 98.2 81 20 113/58 99 Room Air ED Intake and Output 02/21 0000 02/20 1200 Intake Total Output Total Balance Patient 165 lb Weight Weight Estimated Measurement Method Allergies Coded Allergies: Penicillins (ANAPHYLAXIS PER PT 02/12/18) Sulfa (Sulfonamide Antibiotics) (ANAPHYLAXIS PER PT 02/12/18) Reconcile Medications Trazodone HCl 50 MG TABLET 50 MG PO AT BEDTIME PRN INSOMNIA Triage Nurses Notes Reviewed? yes HPI: This is a 52-year-old female history of anxiety, depression, prior overdose presenting to the emergency department for evaluation following assessment by social work coordinator and psychiatrist as outpatient following inpatient stay for suicidality. Patient deemed to be possible as SI risk. Patient does admit to being sad recently, attributes this to a recent breakup from a long-term boyfriend. She denies any active SI, HI, hallucinations, self-harm, ingestions, or other complaints. (Shahid Reddy MD) Past History Travel History Traveled to [place] past 21 day No Medical History Any Pertinent Medical History? see below for history Neurological: NONE EENT: NONE Cardiovascular: NONE Respiratory: NONE Gastrointestinal: NONE Hepatic: NONE Renal: NONE Musculoskeletal: NONE Psychiatric: anxiety, POST DEPRESSION Endocrine: NONE Blood Disorders: NONE Cancer(s): NONE ADMINISTRATIVE SUPPORT SPECIALIST/Reproductive: NONE History of MRSA: No History of VRE: No History of CDIFF: No Surgical History Surgical History: none Psychosocial History Who do you live with Patient/Self What is your primary language Uruguayan Family History Family History, If Any: Relation not specified for: *No pertinent family history Hx Contributory? No (Shahid Reddy MD) Review of Systems Review of Systems Constitutional: Reports: no symptoms. Neurological/Psychological: Reports: see HPI. All Other Systems: Reviewed and Negative (Shahid Reddy MD) Physical Exam Physical Exam General Appearance: well developed/nourished, no apparent distress, awake, anxious Head: atraumatic, normal appearance Eyes: Bilateral: normal appearance, PERRL, EOMI. Ears, Nose, Throat: normal pharynx, normal ENT inspection, hearing grossly normal Neck: normal inspection, supple, full range of motion Respiratory: chest non-tender, no respiratory distress, lungs clear Cardiovascular: regular rate/rhythm, normal peripheral pulses Gastrointestinal: soft, non-tender Back: normal inspection, normal range of motion Extremities: normal inspection, normal capillary refill, no edema Neurologic/Psych: no motor/sensory deficits, awake, alert, oriented x 3 Skin: intact, normal color, warm/dry Core Measures ACS in differential dx? No CVA/TIA Diagnosis: No Sepsis Present: No Sepsis Focused Exam Completed? No (Barry WALSH,Shahid) Progress Differential Diagnoses I considered the following diagnoses in my evaluation of the patient: SI, low suspicion for acute metabolic derangement or toxic process. Doubt acute infectious process or other organic brain pathology. Plan of Care: Orders Procedure Date/time Status Regular Diet 02/21 B Active Patient Data - inpatient psych 02/20 2242 Active Admit to inpatient psych 02/20 224 Active Vital Signs 02/20 215 Active Inpt Psych Teach/Educate 02/20 2155 Active Nutritional Intake, Monitor 02/20 2155 Active Inpt Psych Auricular Acupunctu 02/20 2155 Active Admit to inpatient psych 02/20 2055 Active Intake & Output 02/20 1742 Complete ED CRISIS PSYCH CONSULT 02/20 1712 Active Continuous Observation Monitor 02/20 1625 Complete URINE DRUG SCREEN FOR ER ONLY 02/20 1625 Complete URINALYSIS 02/20 1625 Complete ETHANOL 02/20 1625 Complete COMPREHENSIVE METABOLIC PANEL 02/20 1625 Complete CBC WITHOUT DIFFERENTIAL 02/20 162 Complete ED CRISIS PSYCH CONSULT 02/20 1625 Active Activity/Ambulation 02/20 UNK Active Current Medications Sig/Charly Start time Last Medication Dose Stop Time Status Admin Carbamazepine 100 MG TID 02/21 900 AC (Tegretol) Fluoxetine HCl 20 MG DAILY 02/21 900 AC (Prozac) Gabapentin 300 MG Q8 02/21 06 AC (Neurontin) Gabapentin 200 MG Q2 HRS NEEDED PRN 02/20 2300 AC (Neurontin) Trazodone HCl 50 MG AT BEDTIME PRN 02/20 2230 AC (Desyrel) Laboratory Tests 02/20/18 1720: Anion Gap 9, Estimated GFR > 60, BUN/Creatinine Ratio 15.7, Glucose 85, Calcium 9.3, Total Bilirubin 0.3, AST 18, ALT 25, Alkaline Phosphatase 92, Total Protein 7.0, Albumin 4.0, Globulin 3.0, Albumin/Globulin Ratio 1.3, CBC w Diff NO MAN DIFF REQ, RBC 4.52, MCV 71.3 L, MCH 22.7 L, MCHC 31.8 L, RDW 22.1 H, MPV 9.8 , Gran % 71.3, Lymphocytes % 21.2, Monocytes % 5.9, Eosinophils % 1.1, Basophils % 0.5, Absolute Granulocytes 5.3, Absolute Lymphocytes 1.6, Absolute Monocytes 0.4, Absolute Eosinophils 0.1, Absolute Basophils 0, Serum Alcohol < 10.0 02/20/18 1700: Urine Opiates Screen < 100, Methadone Screen < 40, Barbiturate Screen < 60, Ur Phencyclidine Scrn < 6.00, Amphetamines Screen < 100, U Benzodiazepines Scrn > 800 H, Urine Cocaine Screen < 50, Urine Cannabis Screen < 5.00, Urine Color YEL , Urine Clarity HAZY H, Urine pH 6.0, Ur Specific Peggs 1.025, Urine Protein NEG, Urine Ketones NEG, Urine Nitrite NEG, Urine Bilirubin NEG, Urine Urobilinogen 1.0, Ur Leukocyte Esterase TRACE H, Ur Microscopic SEDIMENT EXAMINED, Urine RBC RARE, Urine WBC 10-15 H, Ur Epithelial Cells FEW, Urine Bacteria MANY H, Urine Hemoglobin NEG, Urine Glucose NEG Per psych recommendation, patient admitted to inpatient psych for further management. Of note, patient is incidentally noted to have bacteriuria and Lukey urea. On reassessment she reiterates that she has no dysuria or frequency or urgency or suprapubic discomfort or fever or any other symptoms of UTI. Given this, will hold off on treating UTI given this is likely an incidental finding. Initial ED EKG: none (Shahid Reddy MD) Departure Departure Time of Disposition: 2015 Disposition: STILL A PATIENT Condition: Stable Clinical Impression Primary Impression: Suicidal ideation Referrals: Unknown (PCP/Family) Departure Forms: Customer Survey General Discharge Information (Shahid Reddy MD) PA/FEATHER MAKER Co-Sign Statement Statement: ED Attending supervision documentation- X I saw and evaluated the patient. I have also reviewed all the pertinent lab results and diagnostic results. I agree with the findings and the plan of care as documented in the PA's/FEATHER MAKER's documentation. [] I have reviewed the ED Record and agree with the PA's/FEATHER MAKER's documentation. [] Additions or exceptions (if any) to the PAs/FEATHER MAKER's note and plan are summarized below: [] (Enio WALSH,Chris) Critical Care Note Critical Care Note Critical Care Time: non-applicable (Barry WALSH,Shahid)
[2018-02-20 17:30] LABS: ABSOLUTE BASOPHIL COUNT 0 /CUMM (0.0-0.2); ABSOLUTE EOSINOPHIL COUNT 0.1 /CUMM (0.0-0.7); ABSOLUTE GRANULOCYTE CT 5.3 /CUMM (1.4-6.5); ABSOLUTE LYMPH COUNT 1.6 /CUMM (1.2-3.4); ABSOLUTE MONOCYTE COUNT 0.4 /CUMM (0.10-0.60); BASOPHIL % 0.5 % (0.0-2.0); EOSINOPHIL % 1.1 % (0-5); GRANULOCYTE % 71.3 % (42.2-75.2); HEMATOCRIT 32.3 % (37-47); MEAN CORPUSCULAR HGB 22.7 PG (27.0-31.0); MEAN CORPUSCULAR HGB CONC 31.8 G/DL (33.0-37.0); MEAN CORPUSCULAR VOLUME 71.3 FL (81.0-99.0); MEAN PLATELET VOLUME 9.8 FL (7.4-10.4); PLATELET COUNT 290 /CUMM (130-400); RBC DISTRIBUTION WIDTH 22.1 % (11.5-14.5); RED BLOOD CELL CT 4.52 /CUMM (4.20-5.40); WHITE BLOOD CELL COUNT 7.5 /CUMM (4.8-10.8)
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
[2018-02-20 21:57] VITALS: BP 128/81
[2018-02-21 07:53] VITALS: BP 130/80
--- NOTE | 2018-02-21 08:06 | CPS PROVIDER INIT ASMT PSYCH ---
Psychiatric Admission Director Work's Note Reviewed: Yes Patient Seen and Examined: Yes Identifying Information: Pt is a 52 year old female arriving to ER after meeting with [facility] Aleena Sosa LCSW Chief Complaint: "I took more Xanax than what I was supposed to" Reaction to Hospitalization: The patient was admitted voluntarily History of Present Illness Onset of Illness: To the patient's illness seems to have started at 21 years earlier with depression Circumstances Leading to Admission: According to Viviane Vaca LCSW's notes of 02/20/2018: "Pt. was placed on a PEC written by Dr. Stewart, after she told Aleena that on 02/17 she had taken more Xanax than she was supposed to", When I asked her if this was a suicide attempt she states "I would probably be dishonest if I said No". She also wrote note, her brother Devin had seen it, and she thinks he also flushed the rest of her xanax. Pt was prescribed xanax by her OB for many years she states it has not been a problem since this recent break up. She used it for anxiety. Pt opens up about an obsessive relationship and having difficulty managing her impulses for clarity and closure. She states she drove to him on Monday and "I shouldnt of done that, he was very mad at me like very mad that I tried to commit suicide a few days ago, he was the one that called the police " Pt states she her 7 year relationship abruptly ended, after the man told her he is staying with his , and that he had been lying to her regarding his intention to ever leave her to be with just her. Pt feels devastated, sad, overwhelmed. Furthermore, pt states her ex is a crime prevention police officer in [place] and called [facility] asking them to do a wellness check, yesterday. Pt states "i was at work, I called them back quickly to tell them I was fine". 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 Pt is exhibiting risky behavior, had a recent admission to [facility] and is currently showing poor impulse control and is quasi suicidal. Reviewed with Dr. Conte pt to be admitted with the expectation she would benefit from IOP level of care upon discharge assuming she is not on benzos. Pt states 'I haven't taken benzos since Monday, I'm fine". Pt main concern is lack of sleep and reports Trazadone is not helping. Pt denies drug/etoh abuse. Tox screen positive for benzo, BAL 0." Problem(s) Justifying Need for Admission: When asked by MANUFACTURING LABORER if this was a suicide attempt she states "I would probably be dishonest if I said No". Past Psychiatric History Past Diagnosis(es)- if any: Unspecified Depressive DO Generalized Anxiety Disorder Past Precipitating Factors- if any: Chronic insomnia - Include inpatient and outpatient treatment Treatment History: The patient was just discharged from the inpatient psychiatric unit on 02/14/2018 (she was admitted 02/12/2018) The patient reported that her first treatment was 21 years ago for depression. However since then she has not been in psychiatric treatment but has been getting a low-dose of Xanax from her SIGNAL REPAIRER to manage her anxiety The previous admission to [facility] was her first psychiatric admission. History of Suicide Attempts or Gestures The patient sees no previous suicide attempts she did however take 6 tablets of Xanax last time she claims it was to go to sleep the strength of the tablets was only 0.5 mg Substance Abuse History: The patient denied alcohol use or abuse. She denied illicit substance use but it is not clear whether she has been misusing the Xanax. [place] prescription monitoring program website indicated that she has been getting only 30 pills of Xanax per month of the 0.5 mg strength. Allergies: Coded Allergies: Penicillins (ANAPHYLAXIS PER PT 02/12/18) Sulfa (Sulfonamide Antibiotics) (ANAPHYLAXIS PER PT 02/12/18) Home Med List: The last time she was on the inpatient psychiatric unit she was against taking any psychiatric medications on a daily basis. And she was discharged only on an as needed doses of trazodone for insomnia. - Include any medical condition(s) that may - impact the patient's recovery/remission Past History Medical History Neurological: NONE EENT: NONE Cardiovascular: NONE Respiratory: NONE Gastrointestinal: NONE Hepatic: NONE Renal: NONE Musculoskeletal: NONE Psychiatric: anxiety, POST DEPRESSION Endocrine: NONE Blood Disorders: NONE Cancer(s): NONE FIG WASHER/Reproductive: NONE History of MRSA: No History of VRE: No History of CDIFF: No Isolation History: Standard Surgical History Surgical History: unexplored Psychiatric Family/Social Hx Family History Psychiatric Illness: The patient's daughter suffers from depression, the patient insists that she was hormonal in nature and that she has responded very well for hormonal supplementation. Substance Use: Patient denied history in the family of alcohol or substance use. Suicides: Patient denied history of suicides in the family. Social History Living Situation: Patient has stable housing, she lives with her 21-year-old twins. 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 Healthly Behaviors Screening Tobacco Screening Tobacco Use from ED Docu: Never used - If tobacco counseling indicated - the following topics are required. - #1 Recognizing dangerous situations. - #2 Coping Skills. - #3 Basic information about quitting. Status of Tobacco Cessation Counseling: Not Applicable Cessation Med Status Not Applicable Alcohol Screening - ETOH screen POS if BAL >=80 or Audit-C>= M4/F3 Audit-C Score from Diag Assess: 1 Blood Alcohol Level: Laboratory Tests 02/20 1720 Toxicology Serum Alcohol (<10 MG/DL) < 10.0 Alcohol Use Screening Results: Neg per Audit C &/or BAL - If ETOH counseling indicated - the following topics are required. - #1 Express concern about the patient's - drinking at unhealthy levels, include informing - of national norms for moderate drinking: - men <= 14 drinks/week, max 4 drinks/occasion - women <= 7 drinks/week, max 3 drinks/occasion - #2 Providing feedback, including linking alcohol to - negative physical effects (liver injury, hypertension) - negative emotional effects (relationship problems and - depression) - negative occupational consequences (reduced work - performance) - #3 Advising the patient to abstain from alcohol or - to drink below national norms for moderate drinking - (as listed above). Status of ETOH Use Counseling: N/A B/C NO ETOH Use Metabolic Screening - Screen if on a Neuroleptic Medication - Metabolic screening should include: - Blood Pressure, BMI, Glucose or Hgb A1c, & a - Lipid profile from within the past 365 days. Metabolic Screening Not Applicable, patient not on a neuroleptic. Exam and Plan Mental Status Examination Ambulation Status: The patient was steady in her gait. Appearance: Unremarkable appearance. Attitude towards examiner: She was calm and cooperative. Psychomotor activity: She showed normal psychomotor activity. Behavior: There were no abnormal or bizarre behaviors. Quality of speech: She had normal speech, not pressured, not slurred. Affect: She showed constricted affect. Mood: Depressed and anxious. Suicidal Ideation: The patient remains on the fence whether her actions suicide intent behind them or not Homicidal Ideation: Denied violent thoughts or thoughts of homicide. Hallucinations: Denied hallucinations. Paranoid/Delusional Material: Denied feeling paranoid, there were no delusions during the interview. Difficulties with thought organization: Patient was coherent, there was no formal thought disorder. Insight: Partial insight. Judgment: Questionable judgment. Orientation: Patient was alert and oriented to time, place, and person. Cognition: Patient did not have any difficulties with information processing. Memory Function: Patient had normal short-term memory. Estimate of intellectual functioning: Average Assets/Strengths Patient Identified Assets/Strengths: The patient is well educated, has a stable job, and has supportive family. Impression/Plan Impression and Plan: 52-year-old white female who presented to the hospital in a very similar presentation to her previous inpatient psychiatric psychiatric admission. She reported that she took more Xanax than she was supposed to and was on the fence whether this was a suicide attempt or not. - Include all active medical diagnosis that require tx DSM 5 Diagnosis(es): Unspecified depressive disorder Generalized anxiety disorder - Initial Tx Plan for Active Psych & Medical Conditions Treatment Plan: Inpatient psychiatric care with safety checks every 15 minutes and Discontinue Prozac and start Zoloft 25 mg daily Discontinue Tegretol Discontinue gabapentin and Add Librium 25 mg at bedtime Continue trazodone 50 mg as needed for insomnia Biopsychosocial assessment, collateral information, and aftercare planning Group therapy, milieu therapy, and activities therapy. - Factors that would help patient function - in a less restrictive setting. Factors: Patient will be discharge after 2 consecutive days without thoughts of suicide.
--- NOTE | 2018-02-21 13:24 | PN- Att Addend ---
Attending Addendum Attending Brief Note Brief Admit Note (recent prior admission) CC: Depression/Suicidal Ideation HPI: The patient is a 52 yo female with h/o anxiety and depression and prior overdose who presented in the ED with c/o increasing depression and suicidal ideation related to recent breakup with her boyfriend. She had a recent [facility] stay for overdose (xanax). At the time of my exam the patient had no complaints and had appropriate affect. No chest pain, dyspnea, abdominal pain, etc. Meds: Current Medications Sig/Charly Start time Last Medication Dose Route Stop Time Status Admin Carbamazepine 100 MG TID 02/21 900 DC 02/21 PO 09 Chlordiazepoxide HCl 25 MG ONCE ONE 02/22 2000 AC PO 02/21 2001 Ferrous Sulfate 325 MG DAILY 02/21 1430 AC 02/21 PO 165 Fluoxetine HCl 20 MG DAILY 02/21 09 DC 02/21 PO 09 Gabapentin 300 MG Q8 02/21 0600 DC 02/21 PO 0448 Gabapentin 200 MG Q2 HRS NEEDED PRN 02/20 2300 DC PO Sertraline HCl 25 MG DAILY 02/21 1017 AC 02/21 PO 1127 Trazodone HCl 50 MG AT BEDTIME PRN 02/20 2230 AC PO PMH: 1. Depression/Anxiety 2. S/P Surgery x 5 on right knee (recent torn anterior cruciate) 3. H/O Information Assoc surgery (?). FH: h/o CAD in paternal GF, otherwise negative medical history SH: non-smoker (never smoked) ROS: + occ right knee pain Labs/Tests: Laboratory Tests 02/20/18 1720: Anion Gap 9, Estimated GFR > 60, BUN/Creatinine Ratio 15.7, Glucose 85, Calcium 9.3, Total Bilirubin 0.3, AST 18, ALT 25, Alkaline Phosphatase 92, Total Protein 7.0, Albumin 4.0, Globulin 3.0, Albumin/Globulin Ratio 1.3, CBC w Diff NO MAN DIFF REQ, RBC 4.52, MCV 71.3 L, MCH 22.7 L, MCHC 31.8 L, RDW 22.1 H, MPV 9.8 , Gran % 71.3, Lymphocytes % 21.2, Monocytes % 5.9, Eosinophils % 1.1, Basophils % 0.5, Absolute Granulocytes 5.3, Absolute Lymphocytes 1.6, Absolute Monocytes 0.4, Absolute Eosinophils 0.1, Absolute Basophils 0, Serum Alcohol < 10.0 02/20/18 1700: Urine Opiates Screen < 100, Methadone Screen < 40, Barbiturate Screen < 60, Ur Phencyclidine Scrn < 6.00, Amphetamines Screen < 100, U Benzodiazepines Scrn > 800 H, Urine Cocaine Screen < 50, Urine Cannabis Screen < 5.00, Urine Color YEL , Urine Clarity HAZY H, Urine pH 6.0, Ur Specific [place] 1.025, Urine Protein NEG, Urine Ketones NEG, Urine Nitrite NEG, Urine Bilirubin NEG, Urine Urobilinogen 1.0, Ur Leukocyte Esterase TRACE H, Ur Microscopic SEDIMENT EXAMINED, Urine RBC RARE, Urine WBC 10-15 H, Ur Epithelial Cells FEW, Urine Bacteria MANY H, Urine Hemoglobin NEG, Urine Glucose NEG Physical Exam: HEENT: eyes- PERRLA, EOMI berta- moist mucosa Neck: no adenopathy or thyromegaly Chest: clear Cor: RRR nl S1, S2 w/o murm Abd: BS+, soft, NT, - HSM Ext: no edema, FROM joints, pulses 2+ Neuro: alert & oriented x 3, non-focal exam Impression/Plan: #Depression/Suicidal Ideation- as per psych notes. The patient was here recently for depression and overdose of Xanax. Appears calm at present. Plan: Admitted to [facility] for closer psychiatric observation and treatment. #Anemia- chronic and similar. Takes iron. Plan: Continue iron therapy.
--- NOTE | 2018-02-21 16:40 | SOCIAL WORKER SOCIAL HX PSYCH ---
Social History Basic Assessment Insurance Authorization: Insurance #1: Insurance name: [facility] Phone number: Policy number: [id number] Group number: [id number] Authorization number: Curr Source of Income/Entitlements: employment Present Problem: Written by Viviane Vaca from inital crisis assessment: Pt is a 52 year old female arriving to ER after meeting with [facility] Aleena Tijerina, she was placed on a PEC written by Dr. Stewart, after she told Aleena that on 02/17/18 she had taken more xanax then she was supposed to", When I asked her if this was a suicide attempt she states "I would probably be dishonest if I said No". She also wrote note, her brother Devin had seen it, and she thinks he also flushed the rest of her xanax. Pt was prescribed xanax by her OB for many years she states it has not been a problem since this recent break up. She used it for anxiety. Pt opens up about an obsessive relationship and having difficulty managing her impulses for clarity and closure. She states she drove to him on Monday and "I shouldnt of done that, he was very mad at me like very mad that I tried to commit suicide a few days ago, he was the one that called the police" Pt states she her 7 year relationship abruptly ended, after the man told her he is staying with his , and that he had been lying to her regarding his intention to ever leave her to be with just her. Pt feels devastated, sad, overwhelmed. Furthermore, pt states her ex is a harbor police launch commander in [place] and called [facility] asking them to do a wellness check, yesterday. Pt states "i was at work, I called them back quickly to tell them I was fine". 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 Pt is exhibiting risky behavior, had a recent admission to [facility] and is currently showing poor impulse control and is quasi suicidal. Reviewed with Dr. Conte pt to be admitted with the expectation she would benefit from IOP level of care upon discharge assuming she is not on benzos. Pt states 'I haven' t taken benzos since Monday, I'm fine". Pt main concern is lack of sleep and reports Trazadone is not helping. Pt denies drug/etoh abuse. Tox screen positive for benzo, BAL 0 CSSRS completed: pt has a variety of risk and protective factors. Primary Language? Belgian Language(s) Spoken At Home: Belgian Living Situation Rents or Owns Home? rents Feel Safe Where You Are Living Yes Feel Safe in Relationships? Yes Comments: Pt rents a home in [place], [place]. Pt lives alone and has resided there for one year now. 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 Moved to [facility], later to [facility]. Very good childhood, with access to many playmates. Patient had security and supportive parents. Patient had 2 siblings as well. Childhood Family Constellation: 1 brother who was 1.5 years older, and one brother who was 5 years younger. Both are successful. Patient has contact and a good relationship with both. Patient had some extended family involvement. Primary Childhood Caretakers: father, mother Family Life During Childhood: Pt reported that she had an amazing childhood with complete support from parents. Pt stated that her parents relationship is like a "love story." Pt reported secure and supportive relationship with siblings growin up. Pt identified family as a "household of achievers." DCF Involvement? No Mother's Age (Current/): 79 Relationship w/Mother: Pt reports a very good relationship with mother and that she is in excellent health. Father's Age (Current/): 79 Relationship w/Father: Pt reports a good relationship with father. Planning an 80 th birthday libertarian for parents Any Sibling(s)? Yes Sibling's Gender(s)/Age(s): male Sibling 1:, male Sibling 2: Relationship w/Sibling(s): Pt reports a very close relationship with siblings. Pt stated that her younger brother is very angry with her right now. She reported that he is a very good doctor and has a great "bedside mannor" however with family he is "too close." Pt also reports that older brother is very supportive and she has a close relationship with his . Relationship w/Friends: Pt had lots of friends growing up, at present seems to rely upon colleagues. Pt reported not doing much with friends lately. Pt said that she "does not do anthing for fun." Pt stated she has "invested herself in her relationship for the past 7 years" and is now at a loss with what to do with herself. Pt showed a slight interest in wanting to be more social and identify new hobbies. Family Psych/Sub Abuse/Add Hx: self-harm Number of Pregnancies: 4 Number of Miscarriages: 3 Number of Abortions: 0 Other Comments: Pt was very tearful when talking about pregnancies. Pt spoke at great length about her traumatic experience with "removing" one of her pregnancies which was at risk. Pt also spoke about daughter's experience with Major Depressive Disorder and self-harm. Pt was also going through a divorce during daughter's first hospitalization. Pt described this time in her life as "traumatic beyond belief" and experienced "an emergency every day." Abuse/Trauma History Trauma History/Current Trauma: emotional, PTSD symptoms, witnessed, Unknown, unable to assess Victim or Perpretator? victim Patient's Age at Time of Trauma: 39 History of Trauma/Abuse Treatment? No Abuse/Trauma Treatment: Pt experienced miscarriages and had to undergo fertility treatments to become . Pt had to have one of her triplets "remove" due to health risk factors. Pt experienced "lots of problems" with her son. She reports discipline and behavioral challenges while he was in school. Pt reported daughter's history of Major Depression Disorder and self-harm incidences. Pt also went through a complicated divorce. Legal History Current Legal Status: none Have you ever been arrested No Hx of Juvenile Legal Charges? No Hx of Adult Legal Charges? No Psychosocial History Primary Support System: father, mother, sibling(s) Strengths/Capabilities: The patient reports having a very supportive family. The patient is very passionate about her work as a lawyer real estate. Pt is motivated to rehabilitate herself for family member's sake. Weaknesses: Patient does not have much of an identity outside of her previous relationship. Pt does not have any identified interests or hobbies at this time. Physical Limitations (Interventions): None noted Last Physical: 2 years History of Seizures? No History of Blackouts? No ADL Limitations: none noted [place]/Social/Peer Relations Pt was only able to identify work friends. Pt reported that she "does not do anything for fun." Meaningful Activities: children welfare Childhood Rastafarian: Moravian (Non-practicing) Is Spirituality Important to You? No Patient's Ethnicity: Tajik Cultural/Ethnic Issues: none noted Are There Developmental Issues? No Milestones Achieved: fine motor, gross motor Psychiatric Treatment History Psych Treatment Inpatient Treatment Yes Outpatient Treatment Yes Location of Treatment [facility] Reason for Treatment Depression/ impulse control and suicide attempt Dates of Treatment 02/12/18-02/14/18 Response to Treatment did not manage stability for very long will be readmitted 02/20/18 Treatment of Prior Episodes: "was seeing someone" Diagnosis: post depression Psychodynamic Issues: woman, with losses, and 2 grown children who have issues. Risk Factors: high anxiety/distress, history of suicide atmpts, poor impulse control, lack of outcome concern, lives alone Substance Use/Abuse History Have You Ever Attended AA? 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 of Jobs in Last 5 Years: 2 Attendance: Above average Performance: Exemplary Comments: Pt is very passionate about line of work. Pt reports that her job is her "foundation" and would be at a loss without it. Pt is very motivated to discharge to return to work. History Have You Been in The ? No Current Mental Status Mental Status Orientation: Person, Place, Situation Affect: Depressed, Lonely, Sad Speech: WNL Neuro-vegetative: Appetite Decreased, Helpless, Loss of Interest, Sleep Disturbance Appearance Appearance- Dress/Hygiene: Pt was dressed in own clothes, appears clean and put together. Behaviors Thought Process: Disorganized, Tangential Thought Content: WNL Memory: WNL Insight: Fair SI/HI Risk Assessment Past Suicidal Ideation/Attempts Yes Current Suicidal Ideation/Att Yes Past Homicidal Ideation/Att: No Current Homicidal Ideation/Attempts No Degree of Intent: States Intent Danger To: Self Lethality Ratin - Conclusion and Recommendations for treatment - and discharge planning Summary: Pt is a 50 year old single white female residing in [place], [place]. Pt grew up in [place] with a stable family life. Pt reports that she had an amazing childhood and continues to have a great relationship with her immediate family. Pt is well educated and holds a Juris Doctorate. Pt is very passionate about her line of work and feels that her job is her "foundation." Pt experienced several traumatic events as an adult. Pt had difficulties with concieving and experienced several miscarriages. Pt had difficulties with son for a very long time, in regards to behavior in and out of school. Pt's daughter was diagnosed at age 14 with Major Depressive Disorder and had many hospitalization for SH/SI instances. Pt went through a complicated divorce during the start of daughter's many hospitalizations. Pt reconnected with a childhood friend and started a romantic relationship which lasted 7 years. Pt reports that this relationship ended very recently and is "heart broken" and "devestated by this loss." Pt reported feeling immense saddness and loss along with thoughts about not wanting to go on. Pt reports abusing Xanax prescription which was ordered by gynocologist for anxiety. Pt states that she does not drink alochol or use other drugs. Pt reports research the method of using alcohol and bezodiazapines. This machine precision etcher did education the pt about the danger of combining these substances. Pt reported that she has been told this before and chose this method with the intent to hurt herself. Pt stated that she just didn't want to think or feel anymore. Pt reports feeling extreme guilt for putting her family through this difficult experience. Pt was frequently tearful throughout assessment. Pt wishes to reach a sense of peace and wellbeing in her life but is "skeptical" that she will be able to experience this. Pt mentioned that she needs to "find herself again" in light of recent breakup. Pt does see therapist in her work area but states she "doesn't love her." Pt had [employer] insurance which she states is difficult to find a preferred provider. Pt denies SI or thoughts of self-harm. Pt states that she no longer has the means since her brother disposed of her Xanax. Pt is highly motivated to be discharged so that she does not risk losing her job.
--- NOTE | 2018-02-21 17:56 | SOCIAL WORKER PROG NOTE PSYCH ---
Social Work Progress Note Progress Note This travel writer met with patient. She stated that she "took Xanax and drank alcohol " which she believes may have been a suicide attempt as she acknowledges that she wrote a suicide note. She stated that she recalls writing the note, but does not remember what she wrote. Patient identified the ending of a relationship as her primary trigger at this time. Regarding supports, she stated, "I have the most fantastic family." Patient denied substance use, stating that her alcohol use (with the Xanax) was unusual for her. "I don't drink." Patient stated that the alcohol she obtained was her daughters, which was given to her daughter when she turned 20. Patient stated that she has been working with a therapist, whom she does not connect with and would like to find a new therapist. She does not want to attend [facility] due to her work schedule. "I love my job and want to get back to it. " Patient is looking for a therapist in [place] as that is where she works. She would also like a referral to [facility]. Patient denied SI/HI/hallucinations. She is agreeable to a family meeting with her brother, Ja Louie ([phone]). This travel writer was informed by Alix Jean-Baptiste LCSW that an ins auth was obtained: "Ashley Authorized 3 day 02/20-02/22 with review on 02/22. marketing operations manager will be assigned and will call CPS to review. Auth # [id number]"
[2018-02-21 19:52] VITALS: BP 153/84
[2018-02-22 07:51] VITALS: BP 138/78
--- NOTE | 2018-02-22 08:20 | CP SOUTH PROGRESS NOTE PSYCH ---
Psych (Inpt) Progress Note Progress Note The patient's progress, treatment plan, and aftercare plans were discussed in the treatment team meeting this morning. Team members included: LCSWs, RNs, OTR/ L, Activities Therapist, and Psychiatrist. Vital Signs Date Time Temp Pulse B/P B/P 02/22 075 98.0 81 138/78 02/22 1952 98.4 82 153/84 Mental Status: The patient was alert and oriented to time, place, and person. She was steady in her gait. She was calm and cooperative. She showed normal psychomotor activity. There were no abnormal or bizarre behaviors. She had normal speech, not pressured, not slurred. She showed brighter affect today and she seems more animated. She reported that her lowest point as far as mood was concerned was yesterday and today she said her mood is improving already. The patient reported her anxiety went down. The patient denied wishing or thinking of suicide today. She denied violent thoughts or thoughts of homicide. She denied hallucinations, denied feeling paranoid, there were no delusions during the interview. Patient was coherent, there was no formal thought disorder. Patient did not have any difficulties with information processing. Patient had normal short-term memory. Assessment: Jennifer is a 52-year-old white female who was admitted after she took more Xanax than she was supposed to. She was on the fence whether this was a suicide attempt or not. Diagnosis(es): Unspecified depressive disorder Generalized anxiety disorder Treatment Plan: Increase Zoloft to 50 mg daily with a catchup dose of 25 mg today since she already took the 25 mg this morning Increase Librium to 50 mg at bedtime because of poor sleep last night with just 25 mg of Librium Continue trazodone 50 mg as needed for insomnia Judgment: Questionable judgment. Orientation: Patient was alert and oriented to time, place, and person. Cognition: Patient did not have any difficulties with information processing. Memory Function: Patient had normal short-term memory. Estimate of intellectual functioning: Average Assets/Strengths Patient Identified Assets/Strengths: The patient is well educated, has a stable job, and has supportive family. Impression/Plan Impression and Plan: 52-year-old white female who presented to the hospital in a very similar presentation to her previous inpatient psychiatric psychiatric admission. She reported that she took more Xanax than she was supposed to and was on the fence whether this was a suicide attempt or not. - Include all active medical diagnosis that require tx DSM 5 Diagnosis(es): Unspecified depressive disorder Generalized anxiety disorder - Initial Tx Plan for Active Psych & Medical Conditions Treatment Plan: Inpatient psychiatric care with safety checks every 15 minutes and Discontinue Prozac and start Zoloft 25 mg daily Discontinue Tegretol Discontinue gabapentin and Add Librium 25 mg at bedtime Continue trazodone 50 mg as needed for insomnia Biopsychosocial assessment, collateral information, and aftercare planning Group therapy, milieu therapy, and activities therapy.
--- NOTE | 2018-02-22 16:03 | SOCIAL WORKER PROG NOTE PSYCH ---
Frances Mccallum 02/22/18 1557: Social Work Progress Note Progress Note Psychiatric Community Health Worker Note This caption writer called the following therapist for the pt to see if they were accepting new patients with [employer] in the [facility] area: Rajni Coleman ([phone])- YES Christine Salas ([phone])-no answer;left a message(02.22.18 at 3:52pm) Sophia Alejandre ([phone])-no answer but the name on the voicemail did not match so no message left Damon Stock ([phone])-NO but his colleagues are accepting new patients at this time Frances "Yosvany Mccallum Psychiatric Community Health Worker
--- NOTE | 2018-02-22 17:21 | SOCIAL WORKER PROG NOTE PSYCH ---
Social Work Progress Note Progress Note This administrative underwriter met with patient. She described her mood as "I feel fine" and denied SI/HI/hallucinations. Patient would like to identify a new individual therapist in the [facility] (where she works). We reviewed a list of providers that was provided by her insurance company. Patient identified whom she would like us to contact to indentify who is accepting new patients at this time. Frances Mccallum will make these calls. Patient will also reach out to her most recent therapist for termination. She did not want this administrative underwriter to contact the therapist. Patient also stated that she would like an appointment with [facility] for medication management and stated that she missed her intake appointment on 02/20/18. She is also agreeable to a family meeting with her brother, Ja Louie ([phone]). He was contacted and a meeting has been scheduled for 1pm on 02/23/18. 1:30pm This administrative underwriter spoke with Agata at [facility] ([phone], ext. [phone]). The next review is due on 02/26/18.
[2018-02-22 19:45] VITALS: BP 126/79
[2018-02-23 08:10] VITALS: BP 94/64
--- NOTE | 2018-02-23 09:09 | CP SOUTH PROGRESS NOTE PSYCH ---
Psych (Inpt) Progress Note Progress Note Jennifer is a 52-year-old white female who was admitted after she took more Xanax than she was supposed to. She was on the fence whether this was a suicide attempt or not. Diagnosis(es): Unspecified depressive disorder Generalized anxiety disorder Vital Signs: Date Time Temp Pulse B/P 02/23 0810 98.5 96 94/64 02/22 1945 98.7 89 126/79 Mental Status: Jennifer was alert and oriented to time, place, and person. She was calm and cooperative. She showed normal psychomotor activity. There were no abnormal or bizarre behaviors. She had normal speech, not pressured, not slurred. She showed brighter affect today and she seems more animated. She reported her mood to be significantly better was concerned was yesterday and today she said her mood is improving already. The patient reported her anxiety went down. The patient denied wishing or thinking of suicide today. She denied violent thoughts or thoughts of homicide. She denied hallucinations, denied feeling paranoid, there were no delusions during the interview. Patient was coherent, there was no formal thought disorder. Patient did not have any difficulties with information processing. Patient had normal short-term memory. Treatment Plan: D/C Home Follow up with OPS psychiatrist and a private therapist
[2018-02-23] MEDS ORDERED: FERROUS SULFAT325 M2 PO (13:34)
[2018-02-23] MEDS ORDERED: TRAZODONE HCL100 M1 PO (13:34)
[2018-02-23] MEDS ORDERED: CHLORDIAZEPOXID25 M3 PO (13:37)
[2018-02-23] MEDS ORDERED: SERTRALINE HCL50 MG PO (13:37)
--- NOTE | 2018-02-23 13:39 | Patient Discharge Instructions ---
Psych Discharge Inst General Discharge Information Reason for Admission: overdose on Xanax Psy Discharge Primary Diag+ Unspecified depressive DO Psy Discharge Secondary Diag+ Generalized Anxiety DO Summary Tests/Major Procedures Lab Hct 32.3 % L 02/20/18 1720 Hgb 10.3 G/DL L 02/20/18 1720 Studies Pending at DC: none Patient Instructions Contact Information Your Psychiatrist on [facility] was Michael Mar MD * If you are experiencing an emergency related to this hospitalization, please call [phone] to contact the treating psychiatrist or the psychiatrist-on- call. * To Request a copy of your medical records, please contact the Medical Records Department at [phone]. * To request results of studies pending at the time of discharge, please call [phone]. * Continue your Medications until directed to stop by your Healthcare provider. General Medication Information Please continue to take your new medications and your continued home medications , unless otherwise indicated on your discharge medication list, or unless directed by your MD or CONSTRUCTION DRILLER to stop them. Special Instructions Diet Regular Activity Normal - Tobacco Use Treatment Offered Post DC Medications Offered: Not Applicable Post DC Tobacco Treatment Plan: Not Applicable - EtOH/Drug Use D/O Treatment Offered Post DC Medications Offered: NA-No EtOH/Drug Use D/O Post DC EtOH/SubAbuse TX Plan: NA-No EtOH/Drug Use D/O Metabolic Screening Not Applicable, patient not on a neuroleptic. Advance Directives Does the Patient have Medical Advance Directives No/Refused further info Does Pt have Psychiatric Advance Directives? No/Refused further info Does Patient have a Designated Surrogate Decision Maker: No Information About Psychiatric Advance Directives Provided? Refused Discharge Plan Post Hospital Treatment Plan: [facility]
--- NOTE | 2018-02-23 14:07 | DISCHARGE SUMMARY REPORT-PSYCH ---
Visit Information Visit Dates/Diagnosis' Admission Date: 02/20/18 Discharge Date: 02/23/18 Reason for Admission: overdose on Xanax Psy Discharge Primary Diag: Unspecified depressive DO Psy Discharge Secondary Diag: Generalized Anxiety DO Hospital Course Course Allergies: Coded Allergies: Penicillins (ANAPHYLAXIS PER PT 02/12/18) Sulfa (Sulfonamide Antibiotics) (ANAPHYLAXIS PER PT 02/12/18) Hospital Course/TX Response: Jennifer is a 52-year-old white female who was admitted after she took more Xanax than she was supposed to. She was on the fence whether this was a suicide attempt or not. Diagnosis(es): Unspecified depressive disorder Generalized anxiety disorder Vital Signs: Date Time Temp Pulse B/P 02/23 0810 98.5 96 94/64 02/22 1945 98.7 89 126/79 Mental Status: Jennifer was alert and oriented to time, place, and person. She was calm and cooperative. She showed normal psychomotor activity. There were no abnormal or bizarre behaviors. She had normal speech, not pressured, not slurred. She showed brighter affect today and she seems more animated. She reported her mood to be significantly better was concerned was yesterday and today she said her mood is improving already. The patient reported her anxiety went down. The patient denied wishing or thinking of suicide today. She denied violent thoughts or thoughts of homicide. She denied hallucinations, denied feeling paranoid, there were no delusions during the interview. Patient was coherent, there was no formal thought disorder. Patient did not have any difficulties with information processing. Patient had normal short-term memory. Treatment Plan: D/C Home Follow up with OPS psychiatrist and a private therapist Discharge HBIPS - Tobacco Use Treatment Offered - EtOH/Drug Use D/O Treatment Offered Metabolic Screening - Screen if on a Neuroleptic Medication - Metabolic screening should include: - Blood Pressure, BMI, Glucose or Hgb A1c, & a - Lipid profile from within the past 365 days. Discharge Instructions General Discharge Information Discharge Diet Regular Discharge Activity Normal Referrals Ordered Referrals Outpatient Psychiatry 03/06/18 248/250 [facility] [place] [address] [facility] [address] [place] [address] Intake appointment: 03/06/18, at 12:30pm with Paola Garza LCSW Outpatient Psychiatry 03/07/18 248/250 [facility], [place] [id number] [facility] [address] [place] [address], [place] [phone] Medication evaluation: 03/07/18, at 10am with Dr. Ruby Provider Referral 03/01/18 For Providers: [Rajni Coleman LCSW] Rajni Coleman LCSW [address] [place] [address], [place] [address] Appointment: , 03/01/18, at 12pm Prescriptions Stop taking the following medications: Trazodone HCl (Trazodone HCl) 50 MG TABLET ORAL AT BEDTIME as needed for INSOMNIA Qty = 15 Start taking the following new medications: Ferrous Sulfate (Ferrous Sulfate) 325 MG (65 MG IRON) TABLET.DR 325 Milligram ORAL DAILY Qty = 14 No Refills Comments: Last Taken:02/23/18 Time:8am Sertraline HCl (Sertraline HCl) 50 MG TABLET 50 Milligram ORAL DAILY Qty = 14 No Refills Comments: Last Taken:02/23/18 Time:8am Trazodone HCl (Trazodone HCl) 100 MG TABLET 1 Tablet ORAL AT BEDTIME as needed for insomnia Qty = 120 No Refills Comments: Last Taken:TO START UPON DISCHARGE Time: Chlordiazepoxide HCl (Chlordiazepoxide HCl) 25 MG CAPSULE 2 Capsule ORAL Every night as needed for insomnia Qty = 28 No Refills Comments: Last Taken:02/22/18 Time:9PM Studies Pending at Discharge none
--- NOTE | 2018-02-23 16:42 | SOCIAL WORKER PROG NOTE PSYCH ---
Frances Mccallum 02/23/18 1640: Social Work Progress Note Faxed Referral(s) Referred To: Therapist Transition of Care Documents sent: Health Summary Faxed to: Rajni Coleman LCSW Fax #: [phone] Faxed by: Lillie Date faxed: 02/23/18 Time Faxed: [phone] Comment: Frances Mccallum (Tish)-Psychiatric [facility] Health Worker
--- NOTE | 2018-02-23 16:43 | SOCIAL WORKER PROG NOTE PSYCH ---
Frances Mccallum 02/23/18 1642: Social Work Progress Note Faxed Referral(s) Referred To: Outpatient Transition of Care Documents sent: Health Summary Faxed to: Outpatient Fax #: [phone] Faxed by: Lillie Date faxed: 02/23/18 Time Faxed: [phone] Comment: Frances Mccallum (Tish)-Psychiatric Community [facility] Worker
--- NOTE | 2018-02-23 18:15 | SOCIAL WORKER PROG NOTE PSYCH ---
Social Work Progress Note Progress Note Dr. Mar and this specifications writer met with the patient and her brother, Ja. We discussed events leading to this admission. Ja stated that the medications and alcohol had been disposed of/removed from the home. Patient stated that she did not plan on having any contact with her previous relationship. Patient was informed of the intake appointment and medication evaluation scheduled with OPS, which she accepted. She was also informed that Francesdeandra Mccallum had contacted a therapist for individual therapy and we were waiting for a response. Patient identified a safety plan in which she would "call Stew [patient's brother], my other brother or my sister in law." She also acknowledged the crisis numbers and warm lines that she had been provided. Patient denied any access to guns, with which Ja agreed. She denied SI/HI/hallucinations and stated that she felt safe and excited to discharge today. She discussed looking forward to returning to work on Monday. OPS intake: 03/06/18 at 12:30pm Med Eval: 03/07/[address] Ruby This specifications writer spoke with Rajni Coleman LCSW ([phone]) who was agreeable to scheduling an appointment. She was informed of reason for admission, diagnosis and discharge plans ( OPS). She also spoke with the patient by phone. An appointment was scheduled for , 03/01/18, at 12pm.
== END 2018-02-23 14:12 | DRG 881 ==
LOC: ERH 16:04 → CP SOUTH 20:55 → ERHI 20:55 → ENTRNSPT 21:34 → EDTRNSPTSTS 21:36 → EDTRNSPT 21:36 → CP SOUTH 21:46 → CMPTRNSPT 21:49 → CP SOUTH 02-21 10:37
PROVIDERS: Physician Assistant Medical
DX: F32.9 Major depressive disorder, single episode, unspecified (principal); F41.1 Generalized anxiety disorder
CPT/HCPCS: 80307; 81001; G0480